=== PATIENT | male | born 1990 | race Two or more races ===

== ENCOUNTER 2022-01-31 19:57 | Emergency (ER) | payer OTHER ==
[~2022-01-31] VITALS: Ht 177.8 cm; Wt 95.3 kg
[2022-01-31] MEDS ORDERED: KETOROLAC TROMETHAMINE INJ 60 MG/2 ML VIAL IM ONE (20:30)
[2022-01-31] MEDS ORDERED: CYCLOBENZAPRINE 10 MG TABLET PO ONE (20:30)
[2022-01-31] MEDS ORDERED: CYCLOBENZAPRINE 10 MG TABLET ONE (20:37)
[2022-01-31] MEDS ORDERED: KETOROLAC TROMETHAMINE INJ 30 MG/ML VIAL ONE (20:37)
--- NOTE | 2022-01-31 21:01 | NUR ---
Patient does not wish to proceed with medical care recommended by ( ). Patient given information related to possible complications, up to and including , which could occur as a result of leaving the hospital at this time. Patient verbalizes understanding of risks involved due to leaving against medical advice. Patient has signed AMA form.
[2022-01-31 21:06] VITALS: BP 130/80
== END 2022-01-31 21:07 | disposition left against medical advice (07) ==
LOC: ER 19:58
DX: M54.50 Low back pain, unspecified (principal); I25.2 Old myocardial infarction
CPT/HCPCS: 99284; 96372; 72100; 72220; J1885